=== PATIENT | male | born 1990 | race Two or more races ===

== ENCOUNTER 2020-09-08 19:16 | Emergency (ER) | payer OTHER ==
[~2020-09-08] VITALS: Ht 175.3 cm; Wt 104.3 kg
[2020-09-08 19:25] VITALS: BP_SYST 142
--- NOTE | 2020-09-08 19:25 | NUR ---
PT TO BED 5 FOR EVALUATION.
--- NOTE | 2020-09-08 19:30 | NUR ---
PT AAO AND AMBULATORY REPORTING URINARY SYMPTOMS LIKE RETENTION. PT REPORTS WORSENING SYMPTOMS X 4 DAYS. PT PROVIDED URINE SAMPLE FOR ANALYSIS. PT CURRENT PAIN LEVEL 6/10 ON PAIN SCALE.
--- NOTE | 2020-09-08 19:45 | NUR ---
DR. HERNANDEZ AT BEDSIDE TO ASSESS.
[2020-09-08 19:59] LABS: BILIRUBIN,URINE NEGATIVE (NEGATIVE); BLOOD, URINE NEGATIVE (NEGATIVE); CLARITY/URINE CLEAR (CLEAR); COLOR,URINE YELLOW (YELLOW); GLUCOSE,URINE NEGATIVE (NEGATIVE); KETONES,URINE NEGATIVE (NEGATIVE); LEUKOCYTE ESTERASE ,URINE NEGATIVE (NEGATIVE); NITRITE, URINE NEGATIVE (NEGATIVE); PH,URINE 6.5 (5.0-8.0); PROTEIN URINE NEGATIVE (NEGATIVE); UROBILINOGEN,URINE 0.2 (0.2-1.0)
[2020-09-08 20:11] LABS: BASOPHILS # (AUTO) 0.1 K/uL (0.0-0.2); BASOPHILS % (AUTO) 0.8 % (0.0-2.0); EOSINOPHILS # (AUTO) 0.1 K/uL (0.0-0.4); HEMATOCRIT 42.7 % (36-54); HEMOGLOBIN 14.5 g/dL (14.0-18.0); LYMPHOCYTES # (AUTO) 2.7 K/uL (1.0-5.5); LYMPHOCYTES % (AUTO) 39.6 % (20.5-51.5); MEAN CORPUSCULAR HEMOGLOBIN 28 pg (27-31); MEAN CORPUSCULAR HGB CONC 34 % (32-36); MEAN CORPUSCULAR VOLUME 82 fL (79.0-98.0); MONOCYTES # (AUTO) 0.5 K/uL (0.0-1.0); MONOCYTES % (AUTO) 7.3 % (1.7-9.3); NEUTROPHILS # (AUTO) 3.4 K/uL (1.8-7.7); NEUTROPHILS % (AUTO) 50.3 % (40.0-70.0); PLATELET COUNT (AUTO) 295 K/uL (130-430); RED BLOOD CELL COUNT(AUTO) 5.22 MIL/uL (4.2-6.2); RED CELL DISTRIBUTION WIDTH 14.4 % (9.0-15.0); WHITE BLOOD COUNT (AUTO) 6.8 K/uL (4.8-10.8)
[2020-09-08 20:23] LABS: CALCIUM 8.8 mg/dL (8.4-11.0); CREATININE 1.14 mg/dL (0.55-1.30); POTASSIUM 3.5 mmol/L (3.5-5.1)
[2020-09-08 20:29] LABS: ALBUMIN 4.2 g/dL (3.4-4.8); TOTAL BILIRUBIN 0.6 mg/dL (0.0-1.0)
--- NOTE | 2020-09-08 20:34 | NUR ---
DR. HERNANDEZ AT BEDSIDE TO RE-EVALUATE PT STATUS AND DISCUSS RESULTS.
[2020-09-08] MEDS ORDERED: AZIT500T3 PO (20:53)
[2020-09-08] MEDS ORDERED: METR500T PO (20:55)
[2020-09-08 21:01] VITALS: BP_SYST 128
--- NOTE | 2020-09-08 21:01 | NUR ---
Patient given written and verbal discharge instructions and verbalizes understanding. ER MD discussed with patient the results and treatment provided. Patient in stable condition. ID arm band removed. Rx of flagyl and zithromycin given. Patient educated on pain management and to follow up with PMD. Pain Scale [0. Opportunity for questions provided and answered. Medication side effect fact sheet provided.
== END 2020-09-08 21:01 | disposition home or self-care (01) ==
LOC: SED 19:16
DX: N34.2 Other urethritis (principal)
CPT/HCPCS: 36415; 80053; 81003; 85025; 99283

== ENCOUNTER 2021-12-04 23:20 | Emergency (ER) | payer OTHER ==
[~2021-12-04] VITALS: Ht 175.3 cm; Wt 96.6 kg
[~2021-12-04 23:20] MED LIST: AZIT500T3 PO; METR500T PO
[2021-12-04 23:30] VITALS: BP_SYST 127
--- NOTE | 2021-12-04 23:34 | NUR ---
PT FROM HOME WITH C/O OF BURING AND PAIN TO THE SCROTUM RATED 8/10 STARTED 4-5 DAYS AGO. BURING WITH URINATION. DENIES BLOOD IN URINE, N/V. REPORTS BEING LIGHTHEADED. PT DENIES MULITPLE SEX PARTNERS.
--- NOTE | 2021-12-04 23:43 | NUR ---
Patient to ER [facility] to gown for evaluation. Side rails up. Report given to Savannah ETIENNE.
--- NOTE | 2021-12-04 23:55 | NUR ---
Received report from Sada RN; assuming care of patient at this time.
--- NOTE | 2021-12-05 00:22 | NUR ---
PT to US accompanied by staff.
--- NOTE | 2021-12-05 01:20 | NUR ---
Dr. Ortiz with patient for evaluation.
[2021-12-05] MEDS ORDERED: DOXY100C5 PO (01:29)
[2021-12-05] MEDS ORDERED: cefTRIAXone 0.75 GM in LIDOCAINE 1%, 20 ML MDV 2.1 ML IM ONE (01:30)
[2021-12-05] MEDS ORDERED: AZITHROMYCIN 250 MG TABLET PO ONE (01:30)
[2021-12-05 01:46] LABS: BILIRUBIN,URINE NEGATIVE (NEGATIVE); BLOOD, URINE NEGATIVE (NEGATIVE); CLARITY/URINE CLEAR (CLEAR); COLOR,URINE YELLOW (YELLOW); GLUCOSE,URINE NEGATIVE (NEGATIVE); KETONES,URINE NEGATIVE (NEGATIVE); LEUKOCYTE ESTERASE ,URINE NEGATIVE (NEGATIVE); NITRITE, URINE NEGATIVE (NEGATIVE); PROTEIN URINE NEGATIVE (NEGATIVE); UROBILINOGEN,URINE 0.2 (0.2-1.0)
[2021-12-05 02:23] VITALS: BP_SYST 129
--- NOTE | 2021-12-05 02:23 | NUR ---
Patient given written and verbal discharge instructions and verbalizes understanding. ER Dr. Ortiz discussed with patient the results and treatment provided. Patient in stable condition. ID arm band removed. Rx of doxycycline given. Patient educated on pain management and to follow up with PMD. Pain Scale 0. Opportunity for questions provided and answered. Medication side effect fact sheet provided.
== END 2021-12-05 02:23 | disposition home or self-care (01) ==
LOC: SED 23:20
DX: N34.2 Other urethritis (principal); R35.0 Frequency of micturition; R30.0 Dysuria; Z79.899 Other long term (current) drug therapy
CPT/HCPCS: 99284; 36415; 76870; 87491; 81003; 96372; J0696; J2001; Q0144